=== PATIENT | male | born 1940 | race Caucasian/White ===

== ENCOUNTER 2017-12-13 09:03 | Outpatient (CLI) | payer MEDICARE, BC ==
[2017-12-13] MEDS ORDERED: METOPROLOL TARTRATE INJ 5 MG/5 ML AMPUL ONE (09:35)
[2017-12-13 10:08] LABS: CALCIUM, SERUM 8.9 mg/dL (8.5-10.1); CARBON DIOXIDE 28 mmol/L (21-32); CHLORIDE 106 mmol/L (98-107); CREATININE 0.9 mg/dL (0.6-1.3); GLUCOSE 97 mg/dL (74-106); POTASSIUM 3.8 mmol/L (3.5-5.1); SODIUM SERUM 141 mmol/L (136-145); UREA NITROGEN, BLOOD 15 mg/dL (7-18)
[2017-12-13] MEDS ORDERED: CT SWABBABLE VALVE TRANS SET 1 EA INFUS.SET MC ONE (10:43)
[2017-12-13] MEDS ORDERED: IV NS 0.9% 250 ML IV ONE (10:43)
[2017-12-13] MEDS ORDERED: IOHEXOL-350 100 ML VIAL IV ONE (10:43)
[2017-12-13] MEDS ORDERED: IOHEXOL 50 ML IV ONE (10:49)
== END 2017-12-13 23:59 | disposition home or self-care (01) ==
LOC: CT 09:03
PROVIDERS: ATTEND Internal Medicine Interventional Cardiology
DX: I25.10 Atherosclerotic heart disease of native coronary artery without angina pectoris (principal); I10 Essential (primary) hypertension; I48.91 Unspecified atrial fibrillation
CPT/HCPCS: 36415; 75574; 80048; J3490; J7050 ×2; Q9967 ×2; Z7610